=== PATIENT | female | born 1970 | race Caucasian/White ===

== ENCOUNTER 2016-04-27 07:13 | Emergency (ER) | payer BC ==
[~2016-04-27 07:13] MED LIST: DROSPIRENONE-E1 EAC3 PO; FLOMAX0.4 M1 PO; PERCOCET 5-3251 EACH PO; ZOFRAN4 M2 PO; [UNRECOGNIZED DRUG - OTHER] PO
[2016-04-27 07:53] LABS: URINE BILIRUBIN NEGATIVE (NEG); URINE BLOOD MODERATE (NEG); URINE GLUCOSE (UA) NEGATIVE (NEG); URINE KETONE MODERATE (NEG); URINE LEUKOCYTE ESTERASE NEGATIVE (NEG); URINE NITRITE NEGATIVE (NEG); URINE PROTEIN MODERATE (NEG); URINE SPECIFIC GRAVITY 1.025 (1.003-1.030)
[2016-04-27 07:56] LABS: URINE APPEARANCE CLEAR; URINE COLOR YELLOW
[2016-04-27 08:04] LABS: URINE MUCUS 2+
[2016-04-27 08:05] LABS: URINE AMORPHOUS 1+; URINE RBC 15-20 /[HPF] (0-5)
[2016-04-27] MEDS ORDERED: ZOFRAN ODT4 MG PO (09:13)
[2016-04-27] MEDS ORDERED: FLOMAX0.4 M1 PO (09:13)
[2016-04-27] MEDS ORDERED: NORCO 5/3251 TAB PO (09:13)
== END 2016-04-27 10:17 ==
LOC: EDMED 07:13
PROVIDERS: Emergency Medicine
DX: N20.1 Calculus of ureter (principal); Z87.442 Personal history of urinary calculi
CPT/HCPCS: J1170; J1885; J2405; J7030